=== PATIENT | female | born 1935 | race Caucasian/White ===

== ENCOUNTER → 2017-01-14 | Outpatient (CLI) | payer OTHER, MEDICARE | LOC: BMCIMAGING 14:06 | PROVIDERS: ATTEND Internal Medicine Rheumatology | DX: M19.041 Primary osteoarthritis, right hand (principal); M77.31 Calcaneal spur, right foot ==

== ENCOUNTER 2017-06-25 11:33 | Emergency (ER) | payer OTHER, MEDICARE ==
[2017-06-25] MEDS ORDERED: ONDANSETRON 4 MG/2 ML VIAL ONE (11:42)
[2017-06-25] MEDS ORDERED: ONDANSETRON 4 MG/2 ML VIAL IVP ONE (11:44)
--- NOTE | 2017-06-25 11:52 | CPEKG ---
Heart Rate: 51 RR Interval: 1176 P-R Interval: 172 QRSD Interval: 82 QT Interval: 496 QTC Interval: 457 P Eldred: 18 QRS Eldred: -19 T Wave Eldred: 61 EKG Severity - ABNORMAL ECG - EKG Impression: SINUS RHYTHM EKG Impression: LEFT VENTRICULAR HYPERTROPHY Electronically Signed By: Max Kiran 25-Jun-2017 13:26:53
[2017-06-25 12:00] VITALS: TEMP 98.1
[2017-06-25] MEDS ORDERED: NS 1,000 ML IV ONE (12:18)
--- NOTE | 2017-06-25 12:20 | EDPHY ---
H & P Stated Complaint: syncopal episode after blood drawn Time Seen by Provider: 06/25/17 11:57 HPI/ROS: CHIEF COMPLAINT: Syncope HISTORY OF PRESENT ILLNESS: The patient presents to the ED after syncopal episode while receiving phlebotomy as an outpatient. The patient has a history of intermittent syncope which reportedly has had a workup by Cardiology which has been unrevealing per the patient. The patient denies any antecedent illness. She has no complaints of chest pain or shortness of breath. The patient does complain of global fatigue. She has no history of a fall or trauma from her syncope today. She denies any acute headache, numbness or weakness. REVIEW OF SYSTEMS: A comprehensive 10 point review of systems is otherwise negative aside from elements mentioned in the history of present illness. Source: Patient Exam Limitations: No limitations - Personal History Current Tetanus Diphtheria and Acellular Pertussis (TDAP): Yes - Medical/Surgical History Hx Asthma: No Hx Chronic Respiratory Disease: No Hx Diabetes: No Hx Cardiac Disease: Yes Hx Renal Disease: No Hx Cirrhosis: No Hx Alcoholism: No Hx HIV/AIDS: No Hx Splenectomy or Spleen Trauma: No Other PMH: RA, "cardiac hx" - Social History Smoking Status: Never smoked - Physical Exam Exam: General Appearance: Alert, no distress Eyes: Pupils equal and round no pallor or injection ENT, Mouth: Mucous membranes moist Respiratory: There are no retractions, lungs are clear to auscultation Cardiovascular: Regular rate and rhythm, no appreciable murmur Gastrointestinal: Abdomen is soft and nontender, no masses, bowel sounds normal Neurological: A&O, normal motor function, normal sensory exam, normal cranial nerves Skin: Warm and dry, no rashes Musculoskeletal: Neck is supple nontender Extremities: Extremity changes consistent with her known arthritis present Constitutional: Initial Vital Signs Temperature (C) 36.7 C 06/25/17 11:35 Heart Rate 53 L 06/25/17 11:35 Respiratory Rate 14 06/25/17 11:35 Blood Pressure 178/79 H 06/25/17 11:35 O2 Sat (%) 85 L 06/25/17 11:35 O2 Delivery Mode Room Air O2 (L/minute) 2 Allergies/Adverse Reactions: No Known Allergies Allergy (Unverified 06/25/17 11:44) Home Medications: Medication Instructions Recorded ASPIRIN 06/25/17 Allopurinol 06/25/17 Atorvastatin Calcium 06/25/17 CeleBREX 06/25/17 Coreg 06/25/17 Losartan Potassium 06/25/17 Methotrexate 06/25/17 predniSONE 06/25/17 traMADol 06/25/17 Medical Decision Making - Diagnostics EKG Interpretation: EKG: Complete interpretation has been separately recorded in the [facility] archive. Summary impression: Sinus rhythm, rate 51 ED Course/Re-evaluation: The patient presents to the ED after syncopal episode. She has had a history of intermittent syncope over the past several years. She has had workup cardiology which is benign. I reviewed results in the [facility] EHR and see that she had an unremarkable echocardiogram performed within the past year. The patient is not hypotensive in the ED. She has no evidence of a significant arrhythmia on her EKG. She is noted to be neurologically intact. The patient was placed on a manager cardiac cath. She received a L of normal saline. Laboratory studies demonstrate no evidence of a critical anemia or metabolic abnormality. She has no evidence of urinary tract infection. The patient was placed on a manager cardiac cath without evidence of arrhythmia appreciated in the emergency department. The patient was re-evaluated at 2:40 p.m. and is ambulatory without acute complaints. She has had an extensive workup for syncope in the past which I do not feel needs to be repeated at this point time. The patient is comfortable being discharged home and following up with her primary care provider. She understands return to the ED should she develop any chest pain, shortness of breath, numbness, weakness or other acute complaints. The patient will follow up with her primary care provider as scheduled. She currently is being considered for possible Remicade infusion for her rheumatoid arthritis. Differential Diagnosis: Differential diagnosis considered includes anemia, metabolic abnormality, arrhythmia, vasovagal episode, heart failure, urinary tract infection - Data Points Laboratory Results: Laboratory Results 06/25/17 12:07 06/25/17 12:07 06/25/17 06/25/17 06/25/17 12:40 12:07 12:07 WBC 4.96 10^3/uL 10^3/uL (3.80-9.50) RBC 3.51 10^6/uL L 10^6/uL (4.18-5.33) Hgb 11.9 g/dL L g/dL (12.6-16.3) Hct 34.2 % L % (38.0-47.0) MCV 97.4 fL fL (81.5-99.8) MCH 33.9 pg pg (27.9-34.1) MCHC 34.8 g/dL g/dL (32.4-36.7) RDW 13.5 % % (11.5-15.2) Plt Count 179 10^3/uL 10^3/uL (150-400) MPV 10.4 fL fL (8.7-11.7) Neut % (Auto) 77.4 % H % (39.3-74.2) Lymph % (Auto) 10.3 % L % (15.0-45.0) Dougherty % (Auto) 7.9 % % (4.5-13.0) Eos % (Auto) 3.6 % % (0.6-7.6) Baso % (Auto) 0.4 % % (0.3-1.7) Nucleat RBC Rel Count 0.0 % % (0.0-0.2) Absolute Neuts (auto) 3.84 10^3/uL 10^3/uL (1.70-6.50) Absolute Lymphs (auto) 0.51 10^3/uL L 10^3/uL (1.00-3.00) Absolute Monos (auto) 0.39 10^3/uL 10^3/uL (0.30-0.80) Absolute Eos (auto) 0.18 10^3/uL 10^3/uL (0.03-0.40) Absolute Basos (auto) 0.02 10^3/uL 10^3/uL (0.02-0.10) Absolute Nucleated RBC 0.00 10^3/uL 10^3/uL (0-0.01) Immature Gran % 0.4 % % (0.0-1.1) Immature Gran # 0.02 10^3/uL 10^3/uL (0.00-0.10) Sodium 137 mEq/L mEq/L (134-144) Potassium 3.8 mEq/L mEq/L (3.5-5.2) Chloride 101 mEq/L mEq/L (97-110) Carbon Dioxide 24 mEq/l mEq/l (22-31) Anion Gap 12 mEq/L mEq/L (8-16) BUN 18 mg/dL mg/dL (7-23) Creatinine 0.9 mg/dL mg/dL (0.6-1.0) Estimated GFR 60 Glucose 141 mg/dL H mg/dL (70-100) Calcium 8.7 mg/dL mg/dL (8.5-10.4) Troponin I < 0.012 ng/mL ng/mL (0.000-0.034) Urine Color PALE YELLOW Urine Appearance CLEAR Urine pH 5.0 (5.0-7.5) Ur Specific [place] 1.005 (1.002-1.030) Urine Protein NEGATIVE (NEGATIVE) Urine Ketones NEGATIVE (NEGATIVE) Urine Blood NEGATIVE (NEGATIVE) Urine Nitrate NEGATIVE (NEGATIVE) Urine Bilirubin NEGATIVE (NEGATIVE) Urine Urobilinogen NEGATIVE EU EU (0.2-1.0) Ur Leukocyte Esterase NEGATIVE (NEGATIVE) Urine Glucose NEGATIVE (NEGATIVE) Medications Given: Discontinued Medications Sodium Chloride (Ns) 1,000 mls @ 0 mls/hr IV EDNOW ONE; Wide Open PRN Reason: Protocol Stop: 06/25/17 12:19 Last Admin: 06/25/17 12:21 Dose: 1,000 mls Ondansetron HCl (Zofran) 4 mg IVP EDNOW ONE Stop: 06/25/17 11:45 Last Admin: 06/25/17 11:45 Dose: 4 mg Departure - Departure Disposition: Home, Routine, Self-Care Clinical Impression: Syncope Condition: Good Instructions: Hypotension (ED) Additional Instructions: 1. Please follow up with your primary care provider as scheduled. 2. Please return to the ED for any chest pain, shortness of breath, headache, numbness, weakness or other acute complaints. 3. All testing done in the emergency department demonstrates no evidence of an acute abnormality. Referrals: Fab Mcmanus MD [[facility] Provider] - As per Instructions
[2017-06-25 12:22] LABS: % IMMATURE GRANULYOCYTES 0.4 % (0.0-1.1); ABSOLUTE IMMATURE GRANULOCYTES 0.02 10^3/uL (0.00-0.10); ADD DIFF? NO; ADD MORPH? NO; ADD SCAN? NO; ATYPICAL LYMPHOCYTE FLAG 0 (0-99); FRAGMENT RBC FLAG 0 (0-99); HEMATOCRIT 34.2 % (38.0-47.0); HEMOGLOBIN 11.9 g/dL (12.6-16.3); LEFT SHIFT FLG 0 (0-99); LIPEMIA HEMOLYSIS FLAG 90 (0-99); MEAN CELL HEMOGLOBIN 33.9 pg (27.9-34.1); MEAN CELL HEMOGLOBIN CONCENTR. 34.8 g/dL (32.4-36.7); MEAN CELL VOLUME 97.4 fL (81.5-99.8); MEAN PLATELET VOLUME 10.4 fL (8.7-11.7); PLATELET CLUMPS FLAG 0 (0-99); PLATELET COUNT 179 10^3/uL (150-400); RED BLOOD CELL COUNT 3.51 10^6/uL (4.18-5.33); RED CELL DISTRIBUTION WIDTH 13.5 % (11.5-15.2)
[2017-06-25 12:41] LABS: ANION GAP 12 mEq/L (8-16); CALCIUM 8.7 mg/dL (8.5-10.4); CARBON DIOXIDE 24 mEq/l (22-31); CHLORIDE 101 mEq/L (97-110); CREATININE 0.9 mg/dL (0.6-1.0); GLOMERULAR FILTRATION RATE 60; GLUCOSE 141 mg/dL (70-100); POTASSIUM 3.8 mEq/L (3.5-5.2); SODIUM 137 mEq/L (134-144)
[2017-06-25 12:51] LABS: COLOR PALE YELLOW; LEUKOCYTE ESTERASE,URINE NEGATIVE (NEGATIVE); NITRITE,URINE NEGATIVE (NEGATIVE)
[2017-06-25 12:52] LABS: TROPONIN I < 0.012 ng/mL (0.000-0.034)
[2017-06-25 15:05] VITALS: BP 148/70; PULSE 56; RESP 12; O2SAT 94
== END 2017-06-25 15:07 | disposition home or self-care (01) ==
LOC: EDUNIT#
DX: R55 Syncope and collapse (principal); E86.9 Volume depletion, unspecified; Z79.82 Long term (current) use of aspirin
CPT/HCPCS: 93005; 96374; 99284; J2405

== ENCOUNTER 2018-07-18 12:31 | Emergency (ER) | payer OTHER, MEDICARE ==
[2018-07-18] MEDS ORDERED: ERYTHROMYCIN 0.5% 1 GM OPHT.OINT LEFTEYE ONE (13:23)
--- NOTE | 2018-07-18 13:28 | EDPHY ---
H & P Time Seen by Provider: 07/18/18 12:37 HPI/ROS: CHIEF COMPLAINT: Head cold, left eye redness. HISTORY OF PRESENT ILLNESS: Patient states she developed upper respiratory infectious symptoms yesterday. Woke up with a stuffy nose, left eye redness and drainage, and feeling tired. Also describes some sinus pressure and fullness to the ears. No fever but some achiness. She did get a flu shot. She denies sore throat or chest pain. No known sick contacts. No vision changes. Contents of 10 point review of systems otherwise negative except for what is mentioned in HPI. General Appearance: Alert, no distress. Eyes: Pupils equal and round no icterus. Left eye with conjunctival erythema, no visible discharge. HEENT: Oropharynx clear no erythema or exudate. TMs clear bilaterally. Respiratory: No respiratory distress, lungs clear to auscultation bilaterally. Cardiac: Regular rate and rhythm no murmurs rubs or gallops. Abdomen: Soft nontender nondistended. Neurological: Awake, alert, no focal deficits. Skin: Warm and dry, no rashes. Musculoskeletal: Neck is supple nontender. Extremities are symmetrical, full range of motion, no edema. Psychiatric: Patient is oriented X 3, there is no agitation. Medical/surgical history: Rheumatoid arthritis, high cholesterol, hypertension , chronic pain, gout. Social history: Denies tobacco, EtOH, drugs Smoking Status: Never smoked Constitutional: Initial Vital Signs Temperature (C) 36.8 C 07/18/18 12:47 Heart Rate 56 L 07/18/18 12:47 Respiratory Rate 16 07/18/18 12:47 Blood Pressure 152/117 H 07/18/18 12:47 O2 Sat (%) 95 07/18/18 12:47 O2 Delivery Mode Room Air Allergies/Adverse Reactions: No Known Allergies Allergy (Verified 07/18/18 12:44) Home Medications: Medication Instructions Recorded Allopurinol 06/25/17 Atorvastatin Calcium 06/25/17 CeleBREX 06/25/17 Coreg 06/25/17 Losartan Potassium 06/25/17 Methotrexate 06/25/17 predniSONE 06/25/17 traMADol 06/25/17 Allopurinol 07/18/18 Amlodipine Besylate 07/18/18 Dilaudid 07/18/18 Lyrica 07/18/18 Medical Decision Making Differential Diagnosis: Differential diagnosis includes but is not limited to upper respiratory infection, bronchitis, conjunctivitis, pneumonia, blepharitis. After evaluation patient with likely viral upper respiratory infection with acute left -sided conjunctivitis. Will treat with topical antibiotics for the conjunctivitis. Discussed conservative care for the remainder of her symptoms. Strict return precautions given. Stable for discharge. Departure - Departure Clinical Impression: Acute upper respiratory infection Conjunctivitis Qualifiers: Conjunctivitis type: acute Acute conjunctivitis type: unspecified Laterality: left Qualified Code(s): H10.32 - Unspecified acute conjunctivitis, left eye Condition: Good Instructions: Erythromycin (Into the eye), Upper Respiratory Infection (ED), Conjunctivitis (ED) Additional Instructions: Use nasal saline washes as discussed 1 to 2 times a day. Other over-the- counter medications that may help use symptoms include Mucinex and pseudoephedrine. Use eye ointment to affected eye, 1/4 inch 5 times a day for 5 days. If you developed fever, shortness of breath, cough or other worsening symptoms please return to the emergency department or see your primary care doctor. Referrals: BABAR CANO [Primary Care Provider] - As per Instructions
[2018-07-18 13:42] VITALS: BP 120/83
== END 2018-07-18 13:43 | disposition home or self-care (01) ==
LOC: CED 12:31
DX: J06.9 Acute upper respiratory infection, unspecified (principal); H10.32 Unspecified acute conjunctivitis, left eye

== ENCOUNTER 2019-01-18 05:36 | Inpatient (IN) | payer OTHER, MEDICARE ==
[2019-01-18] MEDS ORDERED: LR 1,000 ML IV ONE (05:46)
[2019-01-18] MEDS ORDERED: LIDOCAINE 2% 2 ML INJ ONE (06:39)
[2019-01-18] MEDS ORDERED: ONDANSETRON 4 MG/2 ML VIAL ONE (06:39)
[2019-01-18] MEDS ORDERED: DEXAMETHASONE 4 MG/ML VIAL ONE (06:39)
[2019-01-18] MEDS ORDERED: ROCURONIUM 50 MG/5 ML VIAL ONE (06:39)
[2019-01-18] MEDS ORDERED: fentaNYL 100 MCG/2 ML INJ ONE ×2 (06:40→09:43)
[2019-01-18] MEDS ORDERED: PROPOFOL 200 MG/20 ML VIAL ONE (06:40)
[2019-01-18] MEDS ORDERED: BUPIVACAINE/EPI 0.5% 30 ML SDV ONE (06:55)
[2019-01-18] MEDS ORDERED: THROMBIN (BOVINE) 5,000 UNIT VIAL TP ONE (06:55)
--- NOTE | 2019-01-18 07:01 | PDANEPAE ---
ANE Past Medical History - Cardiovascular History Hx Hypertension: Yes Hx Arrhythmias: Yes Hx Chest Pain: No Hx Coronary Artery / Peripheral Vascular Disease: Yes Hx CHF / Valvular Disease: No Hx Palpitations: No Cardiovascular History Comment: SVT without pauses noted on ILR. R carotid vascular disease. HLD - Pulmonary History Hx COPD: No Hx Asthma/Reactive Airway Disease: No Hx Recent Upper Respiratory Infection: No Hx Oxygen in Use at Home: No Hx Sleep Apnea: No Sleep Apnea Screening Result - Last Documented: Negative - Neurologic History Hx Cerebrovascular Accident: Yes Hx Seizures: No Hx Dementia: No Neurologic History Comment: TIA hospitalized at [facility] 11/25/2018 s/t R carotid artery disease. SDH p fall s/p evacuation 2012 - Endocrine History Hx Diabetes: No - Renal History Hx Renal Disorders: No - Liver History Hx Hepatic Disorders: No - Neurological & Psychiatric Hx Hx Neurological and Psychiatric Disorders: No - Cancer History Hx Cancer: No - Congenital Disorder History Hx Congenital Disorders: No - GI History Hx Gastrointestinal Disorders: Yes Gastrointestinal History Comment: Cholecystitis s/p cholecystectomy - Other Health History Other Health History: Rheumatoid arthritis. Gout. Syncope x4 episodes, s/p ILR - Chronic Pain History Chronic Pain: Yes (s/t RA) - Surgical History Prior Surgeries: EP study/ablation and implated loop recorder placement 2015. Subdural hematoma evacuation 2012. Bilateral TKA. Lumbar spine surgery with hardware. Cervical spine surgery with hardware. Hysterectomy. Appy. Cholecystectomy ANE Review of Systems Review of Systems: - Exercise capacity METS (RN): 4 METS ANE Patient History - Allergies Allergies/Adverse Reactions: codeine Allergy (Severe, Verified 01/07/19 15:00) Vomiting - Home Medications Home Medications: Coreg 12.5 mg PO BID 06/25/17 [Last Taken 01/18/19] Losartan Potassium 100 mg PO DAILY AT 9PM 06/25/17 [Last Taken 01/18/19] Methotrexate 15 mg PO 06/25/17 [Last Taken 01/18/19] predniSONE 2.5 mg PO DAILY 06/25/17 [Last Taken 01/18/19 04:00] Allopurinol 100 mg PO DAILY 07/18/18 [Last Taken 01/17/19] Amlodipine Besylate 5 mg PO DAILY 07/18/18 [Last Taken 01/18/19] Lyrica 25 mg PO BID 07/18/18 [Last Taken 01/18/19] Apixaban [Eliquis] 5 mg PO BID 01/07/19 [Last Taken 01/16/19] RX: Furosemide 20 mg PO MWF 01/07/19 [Last Taken 01/17/19] RX: Rosuvastatin Calcium 5 mg PO Q2D 01/07/19 [Last Taken 01/17/19] - NPO status NPO Since - Liquids (Date): 01/18/19 NPO Since - Liquids (Time): 04:00 NPO Since - Solids (Date): 01/17/19 NPO Since - Solids (Time): 18:00 - Smoking Hx Smoking Status: Former smoker - Family Anes Hx Family Hx Anesthesia Complications: None. ANE Labs/Vital Signs - Vital Signs Blood Pressure: 146/66 Heart Rate: 57 Respiratory Rate: 16 O2 Sat (%): 86 Height: 160.02 cm Weight: 70.307 kg ANE Physical Exam - Airway Neck exam: FROM Mallampati Score: Class 1 Mouth exam: normal dental/mouth exam - Pulmonary Pulmonary: no respiratory distress, no rales or rhonchi, clear to auscultation - Cardiovascular Cardiovascular: regular rate and rhythym, no murmur, rub, or gallop - ASA Status ASA Status: III ANE Anesthesia Plan Anesthesia Plan: MAC Total IV Anesthesia: Yes
--- NOTE | 2019-01-18 07:02 | PDHPUP ---
History & Physical Update H&P update statement: This history and physical update is based on an assessment of the patient which was completed after admission or registration (within 24 hours), but prior to the surgery/procedure. H&P update: H&P reviewed & patient examined, no change in patient's condition since H&P completed
[2019-01-18] MEDS ORDERED: ACETAMINOPHEN 325 MG TAB PO PRN (07:04)
[2019-01-18] MEDS ORDERED: ONDANSETRON 4 MG/2 ML VIAL IVP PRN ×2 (07:04→08:08)
[2019-01-18] MEDS ORDERED: HYDROCODONE/APAP 5/325 TAB PO PRN ×2 (07:04→08:08)
--- NOTE | 2019-01-18 07:04 | POSTOPPROG ---
Post Op Note Date of Operation: 01/18/19 Surgeon: Juan Francisco David Top Stitcher: Andrea Kenyon Anesthesiologist: Rasheed Clark Anesthesia: IV Sedation, Local (Specify) Pre-op Diagnosis: Symptomatic right carotid stenosis Post-op Diagnosis: Same Procedure: Right eversion carotid endarterectomy Inf/Abcess present in the surg proc area at time of surgery?: No EBL: Minimal Complications: no immediate Specimen(s): plaque
[2019-01-18] MEDS ORDERED: PROPOFOL/EMULSION 500 MG/50 ML BOTTLE IV ONE ×2 (07:14→08:06)
[2019-01-18] MEDS ORDERED: PHENYLEPHRINE HCL 100 MCG/ML SYR ONE ×2 (07:40→08:36)
[2019-01-18] MEDS ORDERED: NITROGLYCERIN 50 MG/10 ML SDV IV ONE (07:40)
[2019-01-18] MEDS ORDERED: ROPIVACAINE HCL 150 MG/30 ML INJ ONE (07:40)
[2019-01-18] MEDS ORDERED: LABETALOL HCL 5 MG/ML 20 ML MDV IVP PRN (08:08)
[2019-01-18] MEDS ORDERED: LR 500 ML IV PRN (08:08)
[2019-01-18] MEDS ORDERED: PROMETHAZINE HCL 25 MG/ML INJ IVP PRN (08:08)
[2019-01-18] MEDS ORDERED: PHENYLEPHRINE HCL 100 MCG/ML SYR IVP PRN (08:08)
[2019-01-18] MEDS ORDERED: MEPERIDINE 25 MG/0.5 ML AMP IVP PRN (08:08)
[2019-01-18] MEDS ORDERED: NS 500 ML IV PRN (08:08)
[2019-01-18] MEDS ORDERED: ALBUTEROL 3 ML DEYVIAL IH PRN (08:08)
[2019-01-18] MEDS ORDERED: NALOXONE HCL 0.4 MG/ML INJ IVP PRN (08:08)
[2019-01-18] MEDS ORDERED: METOCLOPRAMIDE 10 MG/2 ML VIAL IVP PRN (08:08)
[2019-01-18] MEDS ORDERED: ACETAMINOPHEN 500 MG TAB PO PRN (08:08)
--- NOTE | 2019-01-18 08:10 | POSTANESTH ---
Post Anesthetic Evaluation Cardiovascular Status: Normal, Stable Respiratory Status: Normal, Stable Level of Consciousness/Mental Status: Can Participate in Eval Pain Control: Adequate, Prn Tx Ordered Nausea/Vomiting Control: Adequate, Prn Tx Ordered Complications Possibly Related to Anesthesia: None Noted
[2019-01-18] MEDS ORDERED: HEPARIN 10,000 UNIT/10 ML MDV (1,000 UNIT/ML) ONE (08:13)
[2019-01-18] MEDS ORDERED: SURGIFLO MATRIX KIT WITH THROMBIN 8 ML TP ONE (08:46)
[2019-01-18] MEDS ORDERED: PROTAMINE SULFATE 50 MG/5 ML VIAL IVP ONE (08:46)
[2019-01-18] MEDS ORDERED: predniSONE 5 MG TAB PO SCH (09:00)
[2019-01-18] MEDS ORDERED: PREGABALIN 25 MG CAP PO SCH (09:00)
[2019-01-18] MEDS: fentaNYL 100 MCG/2 ML INJ IVP PRN ×2 (09:45→09:50)
[2019-01-18] MEDS ORDERED: HYDROCODONE/APAP 5/325 TAB ONE (10:35)
--- NOTE | 2019-01-18 12:38 | PDMN ---
Medical Necessity Medical necessity: Mcare IP only surgery; cpt 10044 R Carotid Endarterectomy
[2019-01-18] MEDS: amLODIPine BESYLATE 5 MG TAB PO SCH (13:07)
[2019-01-18] MEDS: ALLOPURINOL 100 MG TAB PO SCH (13:42)
--- NOTE | 2019-01-18 14:44 | GOP ---
[f rep st] OPERATIVE REPORT DATE OF OPERATION: 01/18/2019 SURGEON: Juan Francisco David MD SWING RIDE OPERATOR: Dr. Kenyon ANESTHESIA: Regional with MAC. ANESTHESIOLOGIST: Dr. Clark PREOPERATIVE DIAGNOSIS: Symptomatic right carotid stenosis. POSTOPERATIVE DIAGNOSIS: Symptomatic right carotid stenosis. PROCEDURE PERFORMED: Right eversion carotid endarterectomy. FINDINGS: See below. INDICATIONS: 83-year-old female with a symptomatic high-grade right carotid artery stenosis undergoing surgical repair at this time. Risks and benefits were explained of bleeding, infection, nerve injury, stroke, recurrent stenosis , as well as untoward cardiovascular complications. All questions were answered. She desires to proceed. DESCRIPTION OF PROCEDURE: Superficial cervical block was applied by Anesthesia. Monitored anesthesia care was subsequently started. Intraoperative ultrasound was used to identify the low lying carotid bifurcation. Additional local anesthetic was infiltrated. A transverse incision was created at this level. The platysma muscle was divided. The anterior border of the sternocleidomastoid muscle was identified and dissected out, allowing for exposure to the multiple branching facial vein. The vein was from the jugular vein, as well as smaller surrounding minor tributary veins. The common carotid artery was circumferentially encompassed with a vessel loop, as was the internal and external carotid arteries. The hypoglossal nerve was multiple centimeters superior to the bifurcation and left undisturbed throughout the remaining dissection. The vagus nerve was easily from the posterior aspect of the common carotid artery as well. A heparin bolus was administered. Occluding clamps were placed upon the internal carotid artery, followed by the external and common carotid arteries. The remaining carotid bulb was divided from the surrounding fibrofatty tissue. The internal carotid artery was transected off the common current carotid artery to allow for eversion endarterectomy. There was a small amount of plaque extending onto the internal carotid artery, which did not require much further dissection. The mixed calcific and friable plaque were primarily concentrated within the bulb. This was all cleared back to a healthy-appearing subadventitial layer with endarterectomy. The external carotid artery was everted, allowing for the plaque to be nicely retrieved. The proximal portions of the common carotid artery were all easy to find smooth tapering end points. Arteries were all fore-bled and back-bled. The internal carotid artery was reattached to the carotid bulb with a running 6-0 Prolene suture. The artery was again fore-bled and back-bled before reestablishing flow into the external carotid artery, followed by the internal. Excellent hemostasis was assured. Surgiflo was placed across the wound bed. The neck was closed in multiple layers with absorbable sutures sandwiching Surgiflo in between the layers. Dermabond was applied. The patient awoke in the operating, taken to recovery, moving all 4 extremities, neurologically intact, hemodynamically in good condition. Copy requested to: Olga Nazario NP /[id number]/MODL MTDD
[2019-01-18] MEDS: IBUPROFEN 600 MG TAB PO SCH ×2 (15:00→20:45)
--- NOTE | 2019-01-18 16:40 | SOAPPROG ---
SOAP Progress Note Assessment/Plan: Assessment:postop check - no complaints. pain controlled. no RAND. no neuro changes. BP 100. neck with minimal swelling. neuro intact. doing well. ambulate. anticipate DC tomorrow. Plan: 01/18/19 16:38 Objective: Vital Signs Temp Pulse Resp BP Pulse Ox 36.6 C 50 L 10 L 107/47 L 99 01/18/19 15:45 01/18/19 15:45 01/18/19 15:45 01/18/19 15:45 01/18/19 15:45 01/17/19 01/18/19 01/19/19 05:59 05:59 05:59 Intake Total 1050 Output Total 10 Balance 1040 ICD10 Worksheet Patient Problems: Problems Problem Status Onset Carotid stenosis, right Acute Carotid stenosis, symptomatic, with infarction Acute - ICD10 Problem Qualifiers (1) Carotid stenosis, right (2) Carotid stenosis, symptomatic, with infarction
[2019-01-18] MEDS ORDERED: CARVEDILOL 6.25 MG TAB PO SCH (18:00)
[2019-01-18] MEDS: PREGABALIN 50 MG CAP PO SCH (20:45)
[2019-01-18] MEDS ORDERED: LOSARTAN POTASSIUM 50 MG TAB PO SCH (21:00)
[2019-01-19] MEDS: IBUPROFEN 600 MG TAB PO SCH (05:55)
[2019-01-19 06:56] VITALS: BP 134/52
[2019-01-19] MEDS ORDERED: FUROSEMIDE 20 MG TAB PO SCH (08:00)
[2019-01-19] MEDS ORDERED: predniSONE 5 MG TAB PO SCH (09:00)
[2019-01-19] MEDS: ALLOPURINOL 100 MG TAB PO SCH (09:48)
[2019-01-19] MEDS: PREGABALIN 50 MG CAP PO SCH (09:48)
[2019-01-19] MEDS: amLODIPine BESYLATE 5 MG TAB PO SCH (09:48)
--- NOTE | 2019-01-19 09:52 | ASDISCHSUM ---
Discharge Information Plan Status:Home with No Needs Medically Cleared to Leave:01/19/2019 Discharge Date:01/19/2019 CM D/C Disposition:Home, Routine, Self-Care ADT D/C Disposition:Home, Routine, Self-Care Projected Discharge Date:01/19/2019 Transportation at D/C: Discharge Delay Reason: Follow-Up Date:01/19/2019 Discharge Slot: Final Diagnosis: Placement Information Patient Contact Information Contact Name:EZIO Relationship:Shantal Address:[address] City:[place] Alternate Phone: [facility]/Zip Code:[place] [address] Email: Financial Information Financial Class:Medicare Primary Plan Desc:MEDICARE INPATIENT Primary Plan Number:[id number] Secondary Plan Desc:EMERALD/ENA SUPPLEMENT Secondary Plan Number:[id number] Assessment Information LACE LACE Length of stay for Answers: 1 day current admission Acuity / Level of Answers: Yes Care: Did the patient have an inpatient admission? Comorbidities - select Answers: Cerebrovascular disease all that apply (CVA, TIA, aneurysms, vasc ular dementia) Coronary Artery Disease Opioid dependence / Chronic pain Other Notes: HTN # of Emergency department Answers: 0 visits in the last 6 months Score: 12 Date Signed: 01/19/2019 09:49 AM Electronically Signed By:Ana Mejia RN Intervention Information
--- NOTE | 2019-01-19 10:21 | ASMTDCNOTE ---
Case Management Discharge Discharge Order Complete? Answers: Yes Patient to Obtain Answers: Independently Medications Transportation Arranged Answers: Family/Friends Discharge Comments Notes: 01/19/2019 Case Mangement Note Met w/pt, and daughter. Pt lives with at [facility]. PCP is Dr. Schroeder. Pt has not had home care in the past. There are no case management d/c needs identified. Date Signed: 01/19/2019 10:20 AM Electronically Signed By:Ana Mejia RN
--- NOTE | 2019-01-19 12:03 | GDS ---
[f rep st] DISCHARGE SUMMARY 83-year-old female who underwent a right eversion carotid endarterectomy for history of recent TIA. She had an uneventful postoperative course. Her pain was well managed with PO medications. Her vital signs remained stable through her hospital admission. Due to mild bradycardia, her Coreg was held during her initial hospitalization. This was discussed with her project structural engineer, who recommended decreasing her dose of Coreg to 6.25 mg twice daily upon discharge. She may resume her Eliquis tomorrow. She may resume all her home medications as directed today. Wound care instructions discussed. She may shower. No activity restriction. She may eat a regular diet. She will follow up in the office in 2 weeks. She is aware to call with fevers, chills, wound concerns, difficulty breathing, swelling, or any other questions. A prescription was provided for [place]. All of the patient's questions were addressed. /[id number]/MODL MTDD
[2019-01-19] MEDS ORDERED: ROSUVASTATIN CALCIUM 10 MG TAB PO SCH (21:00)
== END 2019-01-19 11:23 | disposition home or self-care (01) | DRG 39 ==
LOC: F2W 05:36
PROVIDERS: ADMIT Surgery; ATTEND Surgery
PROC: 03CK0ZZ Extirpation of Matter from Right Internal Carotid Artery, Open Approach (ICD-10-PCS; principal; 2019-01-18 07:15)
DX: I65.21 Occlusion and stenosis of right carotid artery (principal); I10 Essential (primary) hypertension; E78.5 Hyperlipidemia, unspecified; I48.0 Paroxysmal atrial fibrillation; Z79.01 Long term (current) use of anticoagulants; Z86.73 Personal history of transient ischemic attack (TIA), and cerebral infarction without residual deficits
CPT/HCPCS: J1100; J1644; J2370; J2405; J2704; J2720; J2795; J3010; J7512